=== PATIENT | female | born 1955 ===

== ENCOUNTER 2020-05-16 21:59 | Inpatient (IN) | payer BC, OTHER ==
[~2020-05-16] VITALS: Ht 182.9 cm; Wt 97.6 kg
[2020-05-16] MEDS: METOPROLOL TART 25 MG TABLET PO SCH (21:00)
[2020-05-16] MEDS ORDERED: NS 1,000 ML IV ONE (22:30)
[2020-05-16] MEDS ORDERED: ONDANSETRON 4MG/2ML VIAL IV ONE (22:30)
[2020-05-16] MEDS ORDERED: METOPROLOL TART 25 MG TABLET PO ONE (22:45)
[2020-05-16] MEDS ORDERED: METO25TA4 PO (23:21)
[2020-05-16] MEDS ORDERED: RA B200C PO (23:21)
[2020-05-16] MEDS ORDERED: CALTTAB6 PO (23:21)
[2020-05-16] MEDS ORDERED: SIMV10TA21 PO (23:21)
[2020-05-16] MEDS ORDERED: ACET-897 PO (23:21)
[2020-05-16] MEDS ORDERED: VITA500C24 PO (23:21)
[2020-05-16] MEDS ORDERED: VITMTA PO (23:21)
[2020-05-16] MEDS ORDERED: FURO40TA2 PO (23:21)
[2020-05-16] MEDS ORDERED: CETI10TA8 PO (23:21)
[2020-05-16] MEDS ORDERED: DILT120C77 PO (23:21)
[2020-05-16] MEDS ORDERED: XARE20TA PO (23:21)
[2020-05-16] MEDS ORDERED: DIGO0.253 PO (23:21)
[2020-05-16] MEDS: MORPHINE 2 MG/ML 1ML VIAL (J2270) IV PRN (23:39)
[2020-05-16] MEDS ORDERED: MORPHINE 2 MG/ML 1ML VIAL (J2270) IV PRN (23:45)
[2020-05-16] MEDS ORDERED: ACETAMINOPHEN TAB 650MG DOSE (2X325MG) PO PRN (23:45)
[2020-05-16] MEDS ORDERED: ONDANSETRON 4MG/2ML VIAL IV PRN (23:45)
--- NOTE | 2020-05-16 23:50 | HPEPDOC ---
[facility] Medical History & Physical Date of Admission May 17, 2020 Date of Service: May 17, 2020 Attending Physician: LOLA PLUMMER MD History and Physical TIME OF SERVICE: 11:58pm CHIEF COMPLAINT: abdominal pain REASON FOR CONSULT: medical co-management HISTORY OF PRESENT ILLNESS: 65-year-old female presented to [facility] with complaints of 8 out of 10 in severity, sharp, stabbing, constant abdominal pain that began at 5 AM. She denied having fevers and chills, but had several episodes of nonbloody loose stools. She was diagnosed with acute appendicitis at [facility] and was transferred here for surgical evaluation; started her on antibio tics. REVIEW OF SYSTEMS: 12 point review of systems negative except as listed in HPI PAST MEDICAL/ SURGICAL HISTORY: Atrial fibrillation on Xarelto (last dose the evening of May 15) History of cardioversion to manage decompensated rapid A. 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 HOME MEDICATIONS: Please see below. PHYSICAL EXAMINATION: Vital Signs Date Time Temp Pulse Resp B/P (MAP) Pulse Ox O2 Delivery O2 Flow Rate FiO2 05/16/20 22:06 97.1 101 16 131/77 95 Room Air GEN: well-nourished / well developed/ NAD INTEGUMENT: slightly flushed/ not jaundice HEENT: lips acyanotic /mucus membranes moist and pink CVS: RRR/NMRGradial and dorsalis pedis pulses intact / no lower extremity edema LUNGS: able to speak full sentences without stopping to take a breath / no coughing / lungs are clear to auscultation bilaterally on room air ABDOMEN: Contour (flat) / soft & tender with palpation MSK/EXTREMITIES: NCAT /range of motion intact in all 4 extremities NEURO: CN 2-12 are grossly intact / speech is not dysarthric PSYCH: alert and oriented to person place and time/ able to understand and follow all commands MICROBIOLOGY: Please see below. ASSESSMENT: Ms. Matthews is a 65-year-old with a history of atrial fibrillation, HTN, and postviral cardiomyopathy who was admitted for acute appendicitis; we were consulted for medical comanagement. PLAN: 1. Acute appendicitis Plan: possible surgery in the morning per primary team 2. Perioperative Assessment Revised Cardiac Index to assess risk of MACE from surgery = 2 points Plan: pre and post-operative testing per RCI score includes pro-BNP if it is >300 she will need to be put on telemetry and her troponin will need to be checked daily / hold Xarelto / per d/w Tiarra Price (Pharmacists) the patient can be give K-central to reverse the effects of xarelto, its onset of action is fairly rapid ( if the INR is elevated there will be a significant decline in the level in as little as 10min) we will hold of ordering the medication for now until surgery has been confirmed because it is expensive 3. AFib Plan: cardizem & metoprolol tartrate / hold Xarelto 4.Cardiomyopathy Plan: f/u Is, Os, daily weights & Echo tomorrow / Lasix and digoxin 5. Chronic HTN Plan: lasix, cardizem & metoprolol tartrate DVT Px w SCDS Dispo: per primary team Thank you for consulting us, we will continue to follow the patient along with you Home Medications Scheduled Ascorbic Acid (Vitamin C) 500 Mg Capsule, 500 MG PO DAILY Black Cohosh Root (Black Cohosh) 200 Mg Capsule, 200 MG PO DAILY Anival/D3/Mag11/Zinc/Yarn Cleaner/Merrick/Bor (Caltrate 600+D Plus Tablet) 1 Each Tablet, 1 TAB PO DAILY Cetirizine HCl (Cetirizine HCl) 10 Mg Tablet, 10 MG PO DAILY Digoxin (Digoxin) 250 Mcg Tablet, 250 MCG PO DAILY Diltiazem HCl (Diltiazem 24Hr ER) 120 Mg Cap.er.24h, 120 MG PO DAILY Metoprolol Tartrate (Metoprolol Tartrate) 25 Mg Tablet, 25 MG PO BID Multivitamins (Thera M Plus Tablet) 1 Each Tablet, 1 TAB PO DAILY Rivaroxaban (Xarelto) 20 Mg Tablet, 20 MG PO QPM TAKES AFTER DINNER Simvastatin (Simvastatin) 10 Mg Tablet, 10 MG PO QHS Scheduled PRN Acetaminophen (Tylenol Extra Strength) 500 Mg Tablet, 1,000 MG PO Q6H PRN for PAIN / FEVER Furosemide (Furosemide) 40 Mg Tablet, 40 MG PO DAILY PRN for EDEMA Allergies Coded Allergies: No Known Allergies (Unverified , 05/16/20) A-FIB/CHADSVASC A-FIB History Current/History of A-Fib/PAF?: Yes Current PO Anticoag Therapy: No Treatment Treatment ordered: Holding Other LOLA PLUMMER MD May 16, 2020 23:50
[2020-05-17] MEDS ORDERED: PIPERACILLIN/TAZOBACTAM SOD 3.375 GM in D5W MINI-BAG PLUS 50 ML IV ONE ×2
[2020-05-17] MEDS ORDERED: FUROSEMIDE 40 MG TAB PO PRN (01:00)
[2020-05-17 02:01] VITALS: BP 128/87
[2020-05-17] MEDS: NS 1,000 ML IV SCH ×4 (02:26→20:17)
[2020-05-17 05:52] VITALS: BP 125/85
[2020-05-17 07:33] LABS: HEMOGLOBIN 13.2 g/dl (12.0-15.5); MEAN CORPUSCULAR HEMOGLOBIN 32.7 pg (27.0-33.0); MEAN CORPUSCULAR HGB CONC 32.2 g/dl (32.0-36.5); MEAN CORPUSCULAR VOLUME 101.5 fl (80.0-96.0); PLATELET COUNT, AUTOMATED 145 10^3/uL (150-450); RED BLOOD COUNT 4.04 10^6/uL (4.00-5.40); WHITE BLOOD COUNT 7.1 10^3/uL (4.0-10.0)
[2020-05-17 07:42] LABS: INR 1.13; PROTHROMBIN TIME 14.8 SECONDS (12.5-14.3)
[2020-05-17 07:57] LABS: BLOOD UREA NITROGEN 8 MG/DL (7-18); CALCIUM LEVEL 7.8 MG/DL (8.8-10.2); CARBON DIOXIDE LEVEL 28 MEQ/L (21-32); CHLORIDE LEVEL 106 MEQ/L (98-107); CREATININE FOR GFR 0.95 MG/DL (0.55-1.30); GLOMERULAR FILTRATION RATE > 60.0 (>45); GLUCOSE, FASTING 103 MG/DL (70-100); POTASSIUM SERUM 4.1 MEQ/L (3.5-5.1); SODIUM LEVEL 137 MEQ/L (136-145)
[2020-05-17] MEDS: METOPROLOL TART 25 MG TABLET PO SCH ×2 (08:22→20:16)
[2020-05-17] MEDS: DIGOXIN 0.25 MG TAB PO SCH (08:22)
[2020-05-17] MEDS: PIPERACILLIN/TAZOBACTAM SOD 3.375 GM in D5W MINI-BAG PLUS 50 ML IV SCH ×3 (08:23→20:17)
[2020-05-17] MEDS: MORPHINE 2 MG/ML 1ML VIAL (J2270) IV PRN ×3 (08:44→22:13)
[2020-05-17] MEDS ORDERED: FLUBLOK(EGG FREE)(QUAD)INFLUENZA VACC 0.5ML SYRINGE 18YRS & OLDER IM ONE (09:00)
[2020-05-17] MEDS ORDERED: dexameTHASONE 4 MG/ML 1ML VIAL (J1100 PER 1MG) As Ordered ONE (10:25)
[2020-05-17] MEDS ORDERED: ONDANSETRON 4MG/2ML VIAL As Ordered ONE (10:25)
[2020-05-17] MEDS ORDERED: LIDOCAINE 2% 100MG/5ML SDV (FOR ANES.) As Ordered ONE (10:26)
[2020-05-17] MEDS ORDERED: ROCURONIUM BROMIDE 50 MG/5 ML VIAL As Ordered ONE (10:26)
[2020-05-17] MEDS ORDERED: propofoL 200 MG/20 ML VIAL As Ordered ONE (10:26)
[2020-05-17] MEDS ORDERED: SUGAMMADEX SODIUM 500 MG/5 ML VIAL (BRIDION) As Ordered ONE (10:26)
[2020-05-17] MEDS ORDERED: MIDAZOLAM INJ 2MG/2ML VIAL (J2250 PER 1MG) As Ordered ONE (10:39)
[2020-05-17] MEDS ORDERED: fentaNYL 250 MCG/5 ML INJECTION (J3010) As Ordered ONE (10:39)
[2020-05-17] MEDS ORDERED: ePHEDrine SULFATE 25 MG/5 ML(5MG/ML) SYRINGE As Ordered ONE (10:41)
[2020-05-17] MEDS ORDERED: PHENYLephrine HCL 500 MCG/5 ML (100MCG/ML) SYRINGE (J2370) As Ordered ONE (10:41)
--- NOTE | 2020-05-17 12:22 | IPNPDOC ---
Date Seen The patient was seen on 05/17/20. Progress Note SUBJECTIVE: Patient NPO, holding off on surgery at this time and will treatment with abx. Risks of holding home xarelto discussed with patient. Abdominal pain still present. Patient denies chest pain, n/v/d, fevers or chills. OBJECTIVE: PHYSICAL EXAM: VS: Please see below GEN: NAD, resting in bed, AAOx3 INTEGUMENT: slightly flushed face, normal skin turgor HEENT: lips acyanotic /mucus membranes moist and pink CVS: NSR, RRR, no M/R/G LUNGS: CTAB, no W/R/R ABDOMEN: Contour (flat), soft & tender with palpation MSK/EXTREMITIES: NCAT /range of motion intact in all 4 extremities NEURO: CN 2-12 are grossly intact / speech is not dysarthric PSYCH: mood and affect appropriate. MICROBIOLOGY: Please see below. ASSESSMENT: Ms. Matthews is a 65-year-old with a history of atrial fibrillation, HTN, and postviral cardiomyopathy who was admitted for acute appendicitis. PLAN: 1. Acute appendicitis -WBC wnl, pain controlled -NPO and holding xarelto -Holding off on surgery for now per surgery team, they will follow while here. 2. AFib -C/w cardizem & metoprolol tartrate / hold Xarelto (Day2) -per surgery, if patient continues to improve by tomorrow can consider restarting xarelto and likely need to f/u with patient o/p for schedule elective surgery 3.Cardiomyopathy -C/w f/u Is, Os, daily weights & Echo tomorrow / Lasix and digoxin 4. Chronic HTN -C/w lasix, cardizem & metoprolol tartrate 5. DVT Px -Teds/SCDS -Restart xarelto tomorrow possibly DISPOSITION: Currently inpatient admission. Plan is discharge home when medically improved. Surgery following daily. VS, I&O, 24H, Fishbone Vital Signs/I&O Vital Signs Date Time Temp Pulse Resp B/P (MAP) Pulse Ox O2 Delivery O2 Flow Rate FiO2 05/17/20 08:44 18 05/17/20 08:22 88 125/85 05/17/20 05:52 97.9 97 Room Air I&O- Last 24 Hours up to 6 AM 05/17/20 06:00 Intake Total 2000 ml Output Total 600 ml Balance 1400 ml Laboratory Data 24H LABS Laboratory Tests 2 05/16/20 23:07: Lactic Acid Level 1.6 05/16/20 23:08: Magnesium Level 2.1 05/17/20 07:08: Nucleated Red Blood Cells % (auto) 0.0, Prothrombin Time 14.8H, Prothromb Time International Ratio 1.13, Anion Gap 3L, Glomerular Filtration Rate > 60.0, Calcium Level 7.8L, AP-Zlm-J-Type Natriuretic Peptide 976H CBC/BMP Laboratory Tests 05/17/20 07:08 Current Medications Current Medications Medications (Trade) Dose Ordered Sig/Liliana Route PRN Reason Start Time Stop Time Status Last Admin Dose Admin Acetaminophen (Tylenol Tab) 650 mg Q4HP PRN PO MILD PAIN or TEMP > 101 05/16/20 23:45 Digoxin (Lanoxin) 0.25 mg DAILY PO 05/17/20 09:00 05/17/20 08:22 Diltiazem HCl (Cardizem Cd) 120 mg DAILY PO 05/17/20 09:00 05/17/20 08:22 Furosemide (Lasix) 40 mg DAILY PRN PO EDEMA 05/17/20 01:00 Home Med (Med Rec Complete!) ASDIRECTED XX 05/16/20 23:30 05/16/20 23:26 DC Metoprolol Tartrate (Lopressor) 25 mg BID PO 05/16/20 21:00 05/17/20 08:22 Morphine Sulfate (Morphine Sulfate Inj) 2 mg Q30M PRN IV MODERATE PAIN (PS 5-7) 05/16/20 22:30 05/17/20 08:45 DC 05/17/20 08:44 Morphine Sulfate (Morphine Sulfate Inj) 2 mg Q4H PRN IV MILD/MODERATE PAIN (PS 1-7) 05/16/20 23:45 Morphine Sulfate (Morphine Sulfate Inj) 4 mg Q4H PRN IV SEVERE PAIN (PS 8-10) 05/16/20 23:45 05/17/20 02:52 Ondansetron HCl (ZOFRAN INJection) 4 mg Q6HP PRN IV NAUSEA OR VOMITING 05/16/20 23:45 05/17/20 02:52 Piperacillin Sod/ Tazobactam Sod 3.375 gm/Dextrose 50 ml @ 50 mls/hr Q6H IV 05/17/20 08:00 05/17/20 08:23 Sodium Chloride 1,000 ml @ 125 mls/hr Q8H IV 05/16/20 23:43 05/17/20 02:26 Allergies Coded Allergies: No Known Allergies (Unverified , 05/16/20) Angeles Griffin MD May 17, 2020 12:22
[2020-05-17 14:00] VITALS: BP 124/84
--- NOTE | 2020-05-17 17:57 | ECGEPIP ---
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
[2020-05-17 20:00] VITALS: BP 146/90
[2020-05-18] MEDS: PIPERACILLIN/TAZOBACTAM SOD 3.375 GM in D5W MINI-BAG PLUS 50 ML IV SCH ×2 (03:20→08:43)
[2020-05-18 05:46] VITALS: BP 130/85
[2020-05-18] MEDS: NS 1,000 ML IV SCH (06:21)
[2020-05-18 07:03] LABS: HEMATOCRIT 40.2 % (36.0-47.0); MEAN CORPUSCULAR HEMOGLOBIN 32.7 pg (27.0-33.0); MEAN CORPUSCULAR HGB CONC 32.3 g/dl (32.0-36.5); PLATELET COUNT, AUTOMATED 144 10^3/uL (150-450); RED BLOOD COUNT 3.98 10^6/uL (4.00-5.40); WHITE BLOOD COUNT 7.2 10^3/uL (4.0-10.0)
[2020-05-18 07:32] LABS: BLOOD UREA NITROGEN 7 MG/DL (7-18); CALCIUM LEVEL 7.8 MG/DL (8.8-10.2); CARBON DIOXIDE LEVEL 25 MEQ/L (21-32); CHLORIDE LEVEL 106 MEQ/L (98-107); CREATININE FOR GFR 0.86 MG/DL (0.55-1.30); GLOMERULAR FILTRATION RATE > 60.0 (>45); GLUCOSE, FASTING 92 MG/DL (70-100); SODIUM LEVEL 137 MEQ/L (136-145)
[2020-05-18] MEDS ORDERED: AUGM875T28 PO (07:55)
[2020-05-18] MEDS: DIGOXIN 0.25 MG TAB PO SCH (08:45)
[2020-05-18 08:46] VITALS: BP 130/85
[2020-05-18] MEDS: METOPROLOL TART 25 MG TABLET PO SCH (08:46)
[2020-05-18] MEDS ORDERED: FLUBLOK(EGG FREE)(QUAD)INFLUENZA VACC 0.5ML SYRINGE 18YRS & OLDER IM ONE (09:15)
--- NOTE | 2020-05-21 14:42 | HPE ---
DATE OF ADMISSION: 05/17/2020 BRIEF HISTORY OF PRESENT ILLNESS: Patient is a 65-year-old female who presents with acute onset of suprapubic right lower quadrant pain that started early this morning, approximately 5 o'clock this morning. She did not have any symptoms or problems yesterday. Did take her Xarelto last night. She has not had any fever or chills. Today. She has had some mild nausea without vomiting. Has had episodes of diverticulitis in the past and was concerned that this may actually be an episode of diverticulitis. Ended up developing some progression of her abdominal symptoms earlier. She was not significantly nauseated, just mostly with the pain, and then nausea and progressed with some vomiting and a loose stool as well. She was seen at the emergency room at [facility] and underwent evaluation with an elevated white count of 12,[address] evidence of appendicitis without periappendiceal abscess or perforation. She has not had any fever or chills since her admission to emergency room (ER) at [place] and is rather comfortable in bed at this time. MEDICAL HISTORY: Significant for: 1. History of atrial fibrillation. 2. History of hypertension. 3. History of environmental allergies. 4. History of diverticulitis 5. History of viral infection, which resulted in cardiac irritation and her atrial fibrillation. MEDICATIONS: Digoxin, Lasix, simvastatin, metoprolol, Xarelto, cetirizine, diltiazem, ascorbic acid, multivitamin, calcium, black cohosh, Tylenol. PHYSICAL EXAMINATION: Reveals a 65-year-old female who looks stated age. HEENT: Atraumatic, normocephalic head with extraocular movements intact. Pupils are equal and reactive to light. Sclerae are nonicteric. Oropharynx clear without exudate or lesions. NECK: Supple without adenopathy. LUNGS: Clear to auscultation without crackles, wheezes, or rhonchi. HEART: Regular without murmur. ABDOMEN: Soft, mildly distended but tender to palpation in the right lower quadrant with guarding, without significant rebound. EXTREMITIES: Warm and well perfused. IMPRESSION AND PLAN: Patient has evidence of acute appendicitis. We have had a long discussion concerning current treatments of appendicitis and options of antibiotic versus proceeding with a laparoscopic appendectomy. Specific discussion and questions were answered concerning risk of bleeding associated with her Xarelto, her being high risk given her current anticoagulation use of the Xarelto. Also discussion of needing medical optimization, and thus will have medicine see her and optimize her from a medical standpoint with rate and blood pressure issues preoperatively; however, at this point we have agreed to continue with antibiotics overnight and see how she is doing in the morning. If she is worse in the morning or has a temperature spike, etc., we would proceed with a laparoscopic appendectomy tomorrow; however, if she has improvement of her overall symptoms, pain, discomfort, we will plan on continued antibiotic treatment. She does understand that there is still a risk of progression of her symptoms with perforation, abscess formation, etc., with nonoperative treatment. Also understands there is a risk of possible significant bleeding with operative intervention while she is still anticoagulated. Thus, we will place her on intravenous (IV) antibiotics, nothing by mouth, IV fluids, and continue with supportive care overnight. RAVI
--- NOTE | 2020-05-23 12:54 | IPN ---
DATE: 05/17/2020 Patient was admitted last night with acute appendicitis, and we had a long discussion regarding treatment of her acute appendicitis, specifically whether to proceed with antibiotic treatment, nonoperative treatment given her recent dose of Xarelto, or proceeding with operative intervention. After seeing how she did overnight, she has been afebrile, her white count has come down to normal, and she states that her abdominal pain is better, but she is still sore and overall states that she is feeling "better today." On physical examination, still has some tenderness along the suprapubic area and into the right lower quadrant without significant guarding, rebound, or peritoneal signs, but definitively tender throughout this area. IMPRESSION AND PLAN: Patient has had some improvement, and I would recommend continued treatment with the current plan of antibiotic treatment and will see how she is doing over the ensuing 24-48 hours. From the standpoint of diet, I have instructed her that I prefer to not advance her diet at this time given that if she develops fevers or increasing pain, then she may need a more urgent/emergent operative intervention, and until she has significant improvement of her abdominal pain and tenderness, I would like to hold off on diet today, possibly start her on some clears tomorrow and progress her diet as tolerated thereafter. Dr. Deal is covering for the weekend should any issues arise. RAVI
--- NOTE | 2020-06-25 07:21 | DS ---
DATE OF ADMISSION: 05/16/2020 DATE OF DISCHARGE: 05/18/2020 PRINCIPAL DIAGNOSIS: Acute appendicitis. ASSOCIATED DIAGNOSES: * History of atrial fibrillation. * History of hypertension. * History of diverticulitis. * History of pericarditis. PROCEDURES PERFORMED: None. BRIEF HISTORY OF PRESENT ILLNESS: The patient is a 65-year-old female who developed acute onset of suprapubic pain on the day of admission, did take her Xarelto last night and essentially was concerned of diverticulitis, came to the [facility], had a white count of 12,000 and evidence of appendicitis. She was transferred to our hospital for further evaluation and states that overall her pain is better than it was in the Emergency Room at [facility], but still having some discomfort. HOSPITAL COURSE SUMMARY: The patient was admitted with the above diagnosis. Given that she was anticoagulation and her abdominal exam, seemed to have some improvement over a very relatively short time and at least stability and not progression. No fevers, no chills and she was started on a clear liquid diet the next morning given she had significant abdominal pain improvement. Her white count was 7.1 and eventually she was advanced to a regular diet and discharged home on 05/18/20 with no pain or discomfort at that time, tolerating a regular diet and was discharged home on her usual medications. DISCHARGE MEDICATIONS: Simvastatin, Xarelto, Multivitamins, Metoprolol, Lasix, Diltiazem, Digoxin, Cetirizine, Black Cohosh, Ascorbic Acid, Tylenol, and Augmentin. FOLLOW UP: She was to follow up in one week for reevaluation and sooner if there were any questions, concerns, fevers or chills. RAVI
== END 2020-05-18 11:58 | disposition home or self-care (01) | DRG 254 ==
LOC: M ED 21:59 → M ED INP 23:43 → ENRESERV 05-17 00:42 → M MS5PR 05-17 01:55
PROVIDERS: ADMIT Surgery; ATTEND Surgery
DX: K35.80 Unspecified acute appendicitis (principal); I48.91 Unspecified atrial fibrillation; I10 Essential (primary) hypertension; B33.24 Viral cardiomyopathy